=== PATIENT | female | born 1980 | race Caucasian/White ===

== ENCOUNTER 2016-09-22 10:58 | Inpatient (IN) ==
[2016-09-22] MEDS ORDERED: Vancomycin 2,000 MG in D5% in Water 500 ML IVPB ONE (11:34)
[2016-09-22] MEDS ORDERED: Albuterol 2.5 MG/3 ML NEBULIZER IH ONE (11:34)
[2016-09-22] MEDS ORDERED: MetroNIDAZOLE 500 MG/100 ML 500 MG/100 ML BAG IVPB ONE (11:38)
[2016-09-22] MEDS ORDERED: Albuterol 2.5 MG/3 ML NEBULIZER ONE (11:54)
[2016-09-22] MEDS: Ringers Solution, Lactated 1,000 ML IVC SCH ×4 (12:05→18:34)
[2016-09-22] MEDS ORDERED: *HR* Propofol 200 MG/20 ML VIAL IVP ONE (12:05)
[2016-09-22] MEDS ORDERED: *HR* Succinylcholine 200 MG/10 ML VIAL IVP ONE (12:05)
[2016-09-22] MEDS ORDERED: Lidocaine -MPF 2% 2 ML VIAL ONE (12:05)
[2016-09-22] MEDS ORDERED: *HR* Midazolam HCl 2 MG/2 ML VIAL ONE (12:05)
[2016-09-22] MEDS ORDERED: *HR* FentaNYL (PF) 100 MCG/2 ML VIAL ONE ×2 (12:06→13:09)
--- NOTE | 2016-09-22 12:08 | Anesthesia Evaluation PreOp ---
Date of Encounter: 09/22/16 Time of Encounter: 12:05 - Past History Planned Operation: Hysterectomy Cardiac History: Denies any Significant Hx Pulmonary History: Smoker, Pack/yr (1 ppd), Asthma [employer] History: Other (pseudotumor cerebri, Depression) Other Medical History: Denies Any Significant HX Anesthesia History: No Prior Anesthetic Complications, Past Anesthesia ( Hydrothermal ablation, Hysteroscopy, Thigh Cyst,) : No Test: Negative (09/17/2016) Alcohol Use: none Drug use: none Medications and Allergies Acetaminophen [Tylenol] 500 mg PO Q6HR PRN 09/22/16 [History] OxyCODONE/APAP 5/325 [Percocet 5/325 MG] 1 each PO Q6HR PRN 09/22/16 [History] Allergies Penicillins Allergy (Verified 09/22/16 11:50) See Comments brain swelling Tetracycline Allergy (Verified 09/22/16 11:50) See Comments brain swelling controll pill Allergy (Uncoded 09/22/16 11:50) See Comments nathalie swelling - Meds/Allergy Pre-op Review Medications Reviewed: Yes Allergies Reviewed: Yes Beta Blockers on Current Med List: No Anesthesia Results - Labs Laboratory Tests 09/17/16 09/17/16 14:00 14:00 WBC 10.5 Hgb 11.9 Hct 38.1 Plt Count 361 Serum , Qual Negative Anesthesia Exam O2 Sat Height 1.66 m Height 1.66 m Height 1.66 m Weight 159.665 kg Weight 159.665 kg Weight 159.665 kg O2 Sat by Pulse Oximetry 96 O2 Sat by Pulse Oximetry 96 Vital Signs Temp Pulse Resp BP Pulse Ox 98.7 F 94 18 133/74 96 09/22/16 11:18 09/22/16 11:18 09/22/16 11:18 09/22/16 11:18 09/22/16 11:18 - HEENT Pupil (Motor): Pupils equal, EOMI Mallampati: III Teeth: Normal Oral Opening: Greater than 3 - [employer] LOC: Oriented [employer] Motor: Normal RUE, Normal LUE, Normal RLE, Normal LLE, Normal Face [employer] Sensory: Normal: RUE, LUE, RLE, LLE, Face - Cardiac Rhythm: Regular Murmur: None JVD: No Carotid Bruit: No Anesthesia Assess/Plan ASA Score: 4 Modified [place] Scale for Level of Consciousness: Cooperative, oriented, and tranquil Anesthetic Plan: General Autologous Blood: Yes Monitoring Plan: Standard Monitors Recovery Plan: PACU
[2016-09-22] MEDS ORDERED: Lidocaine -MPF 4% 5 ML AMPUL ONE (12:09)
--- NOTE | 2016-09-22 12:31 | History & Physical Report ---
Date of Encounter: 09/22/16 Time of Encounter: 12:30 24 Hour HP Update - Instructions Instructions: If the History and Physical is less than 30 days old and was completed prior to A.M. admission and or procedure and has NOT been updated on calendar day of procedure please complete this update prior to performing procedure. - Update Patient reports changes in Medical Condition: No Changes in assessment/condition: No Changes in Medication: No Preop tests/diagnostics Reviewed: Yes Surgery Remains Indicated: Yes Consent for Planned Operative Procedure(s) Verified: Yes - Pre-Operative Checklist Preoperative Checklist Indicated: Yes Prophylactic Antibiotic Ordered: Yes Home Medications Include Beta Alek: No Beta Alek Taken Today (Day of Surgery): No Beta Alek Taken Yesterday (Day Prior to Surgery): No Is VTE Prophylaxis Indicated?: Yes
[2016-09-22] MEDS ORDERED: *HR* Belladonna Alkaloids/Opium 30 MG RECTAL SUPPOSITORY RC ONE (12:40)
[2016-09-22] MEDS ORDERED: *HR* HYDROmorphone 2 MG/ML SYRINGE ONE ×2 (13:19→14:04)
[2016-09-22] MEDS ORDERED: Neostigmine Methylsulfate 3 MG/3 ML SYRINGE ONE (13:36)
[2016-09-22] MEDS ORDERED: Esmolol 100 MG/10 ML VIAL IVP ONE (13:40)
[2016-09-22] MEDS ORDERED: *HR* HYDROmorphone (PF) 1 MG/ML SYRINGE IVP PRN (13:56)
[2016-09-22] MEDS ORDERED: *HR* Labetalol 20 MG/4 ML SYRINGE IVP ONE (14:15)
--- NOTE | 2016-09-22 16:25 | Operative Note ---
Date of procedure: 09/22/16 Pre-op diagnosis: Enlarged fibroid uterus, severe pelvic pain Post-op diagnosis: same Procedure: Total abdominal hysterectomy bilateral salpingectomy Complications: None Anesthesia: CHARISA Surgeon: Braden Nina Meat Stock Clerk: Melissa Johnson Estimated blood loss (cc): 1,000 IV fluids (cc): 3,500 Specimen: Uterus cervix and bilateral tubes Condition: stable Disposition: PACU Procedure in Detail: Patient is a 36-year-old who presented for abdominal hysterectomy secondary to the large fibroid uterus with severe pelvic pain. Patient presented to the emergency room with severe pain CAT scan showed a 21 week size uterus with large 14 cm fibroid. She was sent to the office ultrasound to confirm this enlarged uterus. Patient is morbidly obese over 350 pounds. You could feel the fibroid up to the umbilicus and beyond it was decided this time there would be no way to do this laparoscopically robotic she needs an abdominal hysterectomy. Procedure: Patient was taken the operating room a general anesthesia was found adequate. She was placed in a dorsal supine position prepped and draped in usual fashion. Timeout was obtained. A vertical skin incision was then made from approximately 3 cm superior to the umbilicus around the umbilicus already down to approximately 8 cm from the pubic symphysis. Patient had a large pannus and I did not want ago under the pannus. The incision was then carried out. Underlying tissue to the fascia was identified. Fascia was then extended superiorly and inferiorly with Valencia scissors. Rectus muscles were in midline parietal peritoneum was identified tented up and entered sharply. This was extended superiorly and inferiorly with Metzenbaum scissor. Patient's uterus was then identified was noted to be fixed unable to be brought up through the incision due to body habitus and the size of the uterus. We attempted to use a large Jack retractor were not getting good lateral visualization and we converted over to the Bookwalter once this was in place the round ligaments were identified easily suture ligated and transected I was able to separate the ovary from the uterus bilaterally. The utero-ovarian ligament taking 2 Sam clamps across these ligament transecting and suture ligating. We worked her way down through the broad ligament skeletonizing it to get as low as we could but visualization was so poor I could not see structures. It was decided this time we would need to amputate the fundus of the uterus off for visualization using a scalpel we then transected the fundus off removing the largest portion of the uterus. At this point now we were able to visualize a lot of the uterus so we could finish the hysterectomy. Straight Heaneys were placed across the uterine vessels these were then transected with a scalpel and suture-ligated with 0 Vic[address] work her way down she had a very long cervix and again we got to the point we could not visualize very well because the patient body habitus and it being very deep and still having a large amount of the uterus and the way. We did have good hemostasis at this time and we went ahead and amputated off the second portion of the uterus so the only thing left was cervical stump. Once we were down to this level I was able to then identify the cervix 2 curved Sam clamps were placed across the vaginal cuff and the cervix was removed. The vaginal cuff was then using 0 Vicryl by Sam stitches on the corners and a [id number] in the midline. We had good hemostasis at this point attention was then turned back to the ovaries the fallopian tubes were then removed from the ovary with a Sam clamp across the mesosalpinx and both fallopian tubes were removed. She did have small cysts on the ovaries but she wanted to leave the ovaries and it did not look bad and we went ahead and left them in place. Pelvis was copiously irrigated no active bleeding and then Lakshmi was applied to all surfaces. All instruments were then removed from the abdomen the fascia was then closed using a double looped PDS loop from the both corners to midline and tied in the midline. The subcutaneous tissue was brought together by 0 chromic and skin was closed using arely. A DASHA Dressing was then applied and abdominal binder was applied and then patient was taken to recovery room. All needles lap sponge counts were correct 3 and she did receive preoperative antibiotics. Patient will be started on Lovenox due to body habitus CHEMICALS DISTILLER for pain control and hopefully discharge home in 48 hours.
[2016-09-22] MEDS ORDERED: Acetaminophen IV 1,000 MG/100 ML INFUS..BTL IVPB ONE (16:28)
[2016-09-22] MEDS ORDERED: *HR* HYDROmorphone (PF) 1 MG/ML SYRINGE ONE (16:28)
[2016-09-22] MEDS: *HR* HYDROmorphone (PF) 1 MG/ML SYRINGE IVP PRN ×4 (16:29→16:48)
--- NOTE | 2016-09-22 17:01 | Anesthesia Evaluation Post Op ---
Date of Encounter: 09/22/16 Time of Encounter: 17:00 - Vital Signs Vital Signs: Vital Signs/O2 Sat/Glucose, Most Current Temp Pulse Resp BP Pulse Ox 09/22/16 16:48 98.2 F 82 20 125/77 99 09/22/16 16:38 85 20 146/83 100 09/22/16 16:28 77 20 138/58 99 09/22/16 16:23 78 18 138/81 100 09/22/16 16:18 97.0 F L 83 14 133/85 100 - Lungs Lungs: Clear Ascult./Percussion - Airway Airway: Non-obstructed - Cardiovascular Regular Rate - Mental Status Mental Status: Alert & Oriented, Answers Appropriately - Pain Pain Scale: 4 - Nausea Vomiting Nausea Vomiting: Not Present - Hydration Hydration: NPO - Discharge PostOp Status: Transfer Patient to floor
[2016-09-22] MEDS ORDERED: Ringers Solution, Lactated 1,000 ML ONE (17:06)
[2016-09-22] MEDS ORDERED: *HR* OxyCODONE/APAP 5/325 TABLET PO PRN (17:48)
[2016-09-22] MEDS ORDERED: Naloxone 0.4 MG/ML INJ IVP PRN (17:48)
[2016-09-22] MEDS ORDERED: *HR* HYDROmorphone 20 MG/20 ML PCA IVC PRN (17:48)
[2016-09-22] MEDS ORDERED: Ondansetron 4 MG/2 ML VIAL IVP PRN (17:48)
[2016-09-22] MEDS: *HR* Enoxaparin 80 MG/0.8 ML SYRINGE SQ SCH (18:35)
[2016-09-23] MEDS: Ringers Solution, Lactated 1,000 ML IVC SCH ×3 (01:44→18:46)
[2016-09-23 05:14] LABS: Basophils % 0.2 %; Hematocrit 36.1 % (35.3-44.9); Hemoglobin 11.3 g/dL (11.5-15.4); Immature Granulocytes % 0.8 % (0-4); Lymphocytes # 1.9 K/mcL (0.6-4.6); Lymphocytes % 16.5 %; Mean Corpuscular HGB Conc 31.3 g/dL (31.6-35.5); Mean Corpuscular Hemoglobin 27.8 pg (28.0-33.3); Mean Corpuscular Volume 88.9 fL (83.0-100.0); Mean Platelet Volume 9.2 fL (9.4-12.4); Monocytes # 0.6 K/mcL (0.0-1.3); Neutrophils # 9.1 K/mcL (1.6-8.9); Platelet Count 319 K/mcL (140-400); Red Blood Count 4.06 M/mcL (3.82-4.97); Red Cell Distribution Width 14.2 % (11.5-14.5); Segmented Neutrophils % 77.5 %
--- NOTE | 2016-09-23 07:18 | OB/GYN Progress Note ---
Date of Encounter: 09/23/16 Time of Encounter: 07:20 - Assessment and Plan (1) Status post abdominal hysterectomy Current Visit: Yes Status: Acute We will advance diet slowly encourage ambulation possible discharge tomorrow or the next day if stable and afebrile Subjective - Subjective Interval history: Patient states having moderate amount of pain but is sitting up at this time. Patient is currently on the MEDICAL UNIT SECRETARY pump did advise her that we will have to come off later today and we will switch over to by mouth Percocet. She is having no nausea vomiting is tolerating clear liquids. We will advance the diet appropriately and get the patient ambulating. Patient will be discharged home tomorrow on Wednesday depending on her stability. Objective - Vital Signs Latest vital signs: Vital Signs Temp Pulse Resp BP Pulse Ox 09/23/16 04:48 98.4 F 91 16 177/76 95 09/23/16 00:20 98.4 F 92 16 102/68 96 09/22/16 20:42 97.8 F 85 16 126/83 96 09/22/16 20:27 98 F 82 12 104/67 97 09/22/16 18:34 97.7 F 79 18 157/84 97 09/22/16 18:30 18 97 09/22/16 18:00 97.7 F 80 18 172/83 95 09/22/16 17:45 98.2 F 79 16 142/79 98 09/22/16 17:30 20 09/22/16 16:58 98.2 F 78 16 117/57 99 09/22/16 16:48 98.2 F 82 20 125/77 99 09/22/16 16:38 85 20 146/83 100 09/22/16 16:28 77 20 138/58 99 09/22/16 16:23 78 18 138/81 100 09/22/16 16:18 97.0 F L 83 14 133/85 100 09/22/16 12:28 18 133/74 96 09/22/16 11:39 98.7 F 94 18 133/74 96 09/22/16 11:18 98.7 F 94 18 133/74 96 Intake and Output 09/22/16 09/22/16 09/23/16 15:59 23:59 07:59 Intake Total 2600 / 2600 340 / 340 1000 / 1000 Output Total 1750 / 1750 1150 / 1150 Balance 2600 / 2600 -1410 / -1410 -150 / -150 Intake: IV Fluids 2600 / 2600 100 / 100 1000 / 1000 Lactated Ringers 1,000 ML 2000 / 2000 1000 / 1000 @ 125 mls/hr IVC .Q8H BOO Rx#:[id number] Ofirmev 1,000 mg In 100 100 / 100 ml @ 400 mls/hr IVPB ONCE ONE Rx#:[id number] Flagyl 500 MG/100 ML 500 100 / 100 mg In 100 ml @ 100 mls/hr IVPB PREOP ONE Rx#: [id number] Vancocin 2,000 MG In 500 / 500 Dextrose 5% 500 ML @ 250 mls/hr IVPB ONCE ONE Rx#: [id number] Oral 240 / 240 Output: Estimated Blood Loss 1000 / 1000 Catheter 750 / 750 1150 / 1150 Other: Weight 159.665 kg - I&O's I&O's: Intake & Output 09/20/16 09/21/16 09/22/16 09/23/16 23:59 23:59 23:59 23:59 Intake Total 2940 / 2940 1000 / 1000 Output Total 1750 / 1750 1150 / 1150 Balance 1190 / 1190 -150 / -150 Weight 159.665 kg - Exam Lungs: bilateral: normal Chest: Normal S1, Normal S2 Extremities: Present: normal Abdomen: Present: other (Dressing is intact and dry DASHA is working well positive bowel sounds 4) - Labs Labs: Abnormal lab results WBC 11.8 K/mcL (4.3-11.1) H 09/23/16 05:05 Hgb 11.3 g/dL (11.5-15.4) L 09/23/16 05:05 MCH 27.8 pg (28.0-33.3) L 09/23/16 05:05 MCHC 31.3 g/dL (31.6-35.5) L 09/23/16 05:05 MPV 9.2 fL (9.4-12.4) L 09/23/16 05:05 Neutrophils # 9.1 K/mcL (1.6-8.9) H 09/23/16 05:05 Consult Discharge Plan - Plan Referrals: NO,PCP [Primary Care Provider] -
[2016-09-23] MEDS: *HR* Enoxaparin 80 MG/0.8 ML SYRINGE SQ SCH ×2 (07:30→18:43)
[2016-09-23] MEDS: MOM Conc 10 ML UD.LIQ PO SCH (08:21)
[2016-09-23] MEDS: *HR* OxyCODONE/APAP 10/325 TABLET PO PRN ×2 (18:06→21:51)
[2016-09-24] MEDS: *HR* OxyCODONE/APAP 10/325 TABLET PO PRN ×4 (02:26→15:32)
[2016-09-24] MEDS: *HR* Enoxaparin 80 MG/0.8 ML SYRINGE SQ SCH (06:58)
[2016-09-24] MEDS: MOM Conc 10 ML UD.LIQ PO SCH (09:02)
--- NOTE | 2016-09-24 10:42 | Discharge Summary ---
Date of Encounter: 09/24/16 Time of Encounter: 10:46 - Discharge Diagnosis (1) Status post abdominal hysterectomy Priority: Primary Status: Acute Comments: Pt states feeling better, tolerating diet. No passing flatus. Encourgaed to ambulate and may discharge when passing flatus - Discharge Medications Prescriptions: OxyCODONE/APAP 5/325 [Percocet 5/325 MG] 1 each PO Q4HR PRN #60 tablet PRN Reason: Severe Pain (7-10) Docusate [Colace] 100 mg PO BID #60 capsule Home Medications: Acetaminophen [Tylenol] 500 mg PO Q6HR PRN 09/22/16 [History] Docusate [Colace] 100 mg PO BID #60 capsule 09/24/16 [Rx] OxyCODONE/APAP 5/325 [Percocet 5/325 MG] 1 each PO Q4HR PRN #60 tablet 09/24/16 [Rx] Allergies/Adverse Reactions: Allergies Penicillins Allergy (Verified 09/22/16 11:50) See Comments brain swelling Tetracycline Allergy (Verified 09/22/16 11:50) See Comments brain swelling controll pill Allergy (Uncoded 09/22/16 11:50) See Comments nathalie swelling Data Procedures and tests throughout hospitalization: Laboratory Tests 09/23/16 05:05 WBC 11.8 H RBC 4.06 Hgb 11.3 L Hct 36.1 MCV 88.9 MCH 27.8 L MCHC 31.3 L RDW 14.2 Plt Count 319 MPV 9.2 L Immature Gran % 0.8 Seg Neutrophils % 77.5 Lymphocytes % 16.5 Monocytes % 5.0 Eosinophils % 0.0 Basophils % 0.2 Neutrophils # 9.1 H Lymphocytes # 1.9 Monocytes # 0.6 Eosinophils # 0.0 Basophils # 0.0 Date of admission: 09/22/16 17:38 Primary care physician: PCP NO Discharging clinician: Cleopatra Ha Anticipated date of discharge: 09/24/16 - Patient Status Disposition: Home, Self-Care Condition: Good Functional capacity at discharge: independent ambulation Overall status at discharge: patient is progressing back to baseline - Discharge Instructions Follow Up With: NO,PCP [Primary Care Provider] - Braden Nina DO [Partnered Physician] - - Diet and Activity Activity: increase activity as tolerated Diet: advance to your usual diet Hospital Course ELECTRICIAN UNDERGROUND Post op complications: none Hospital course: Total abdominal hysterectomy bilateral salpingectomy Complications: None Anesthesia: CHARISA Surgeon: Braden Nina Assistant Front End Manager: Melissa Johnson Estimated blood loss (cc): 1,000 IV fluids (cc): 3,500 Specimen: Uterus cervix and bilateral tubes Condition: stable and appropriate for discharge Time Attestation: Total time spent providing and/or coordinating discharge services: Time Spent: Less than 30 minutes Exam - Constitutional Vitals: Temp Pulse Resp BP Pulse Ox 98.6 F 100 17 115/75 98 09/24/16 03:45 09/24/16 03:45 09/24/16 03:45 09/24/16 03:45 09/24/16 03:45 General appearance IM: A&O X 3 - Respiratory Respiratory exam: Present: CTAB - Cardiovascular Cardiovascular exam IM: Present: RRR, +S1, +S2 - GI/Abdominal GI/Abdominal exam IM: normal bowel sounds, soft Incision: intact (DASHA dressing intact with minimal dried discharge unable to assess) - Extremities Exam Extremities exam IM: Present: normal inspection - Neurological Exam Neurological exam: normal gait (clar), oriented X3 - Skin Additional comments: DASHA dressing intact - VTE Documentation of Mechanical Device: Intermittent pneumatic compression device
[2016-09-24 16:18] VITALS: BP 146/83
[2016-09-24] MEDS ORDERED: FLU VACC QS2016-17 36MOS UP/PF 0.5 ML SYRINGE IM ONE (16:34)
== END 2016-09-24 17:15 | disposition home or self-care (01) | DRG 519 ==
LOC: SAMDAY 10:58 → 1NENUOBS 17:38
PROVIDERS: ADMIT Obstetrics & Gynecology; ATTEND Obstetrics & Gynecology